=== PATIENT | male | born 2000 | race African-American/Black ===

== ENCOUNTER 2021-02-11 10:00 | Emergency (ER) | payer OTHER, SELFPAY ==
--- NOTE | ~2021-02-11 | XR_ITS ---
EXAMINATION: XR KNEE, RIGHT CLINICAL INFORMATION: Right knee pain giving out. COMPARISON: None TECHNIQUE: Four views of the right knee. FINDINGS: Bones and soft tissues are normal. No fracture or joint effusion. Alignment is anatomic. Joint spaces are well maintained. No abnormal soft tissue calcification. XR/XR knee RT 4V IMPRESSION: Unremarkable right knee exam
[2021-02-11 10:21] VITALS: BP 119/74; PULSE 85; RESP 14; TEMP 36.9; O2SAT 100; BMI 28.2
--- NOTE | 2021-02-11 11:39 | ED_ITS ---
HPI - General Adult General Chief complaint: Upper Respiratory Symptoms Stated complaint: sore throat Time Seen by Provider: 02/11/21 11:19 Source: patient Mode of arrival: ambulatory Limitations: no limitations History of Present Illness HPI narrative: Patient presents to ED for runny nose and sore throat since yes terday. Patient denies any coughing, chest pain, or shortness of breath. Patient denies any fever, chills, or body aches. Patient's secondary complaint is right knee pain. Patient states right knee pain has been going on for couple months. Patient states at times his right knee at times will just give out and causing him to almost fall. Patient has not seen a provider for this knee issue Related Data Previous Rx's Medication Instructions Recorded naproxen 500 mg PO BID PRN #20 tab 02/11/21 Allergies Allergy/AdvReac Type Severity Reaction Status Date / Time No Known Allergies Allergy Unverified 05/14/20 17:56 Review of Systems Review of Systems: Yes all other systems are reviewed and are negative Constitutional: Constitutional: Reports as per HPI and Reports no additional constitutional complaints Eyes: Eyes: Reports as per HPI and Reports no additional eye complaints ENT: Reports system reviewed and no additional complaints, except as documented, Reports as per HPI, Reports nasal congestion and Reports sore throat Cardiovascular: Cardiovascular: Reports as per HPI, Reports no additional cardiovascular complaints and Denies chest pain Respiratory: Respiratory: Reports as per HPI, Reports no additional respiratory complaints and Denies cough Gastrointestinal: Gastrointestinal: Reports as per HPI and Reports no additional gastrointestinal complaints Genitourinary: Genitourinary: Reports no additional male genitourinary complaints and Reports as per HPI Musculoskeletal: Musculoskeletal: Reports no additional musculoskeletal complaints and Reports as per HPI Neurologic: Reports system reviewed and no additional complaints, except as documented and Reports as per HPI Psychiatric: Psychiatric: Reports no additional psychiatric complaints and Reports as per HPI [facility] Social History Social History Advance Directives: No Advance Directives Information Provided: No Physical Exam Vital Signs: Vital Signs: Last Vital Signs Temp 98.5 F 02/11/21 10:21 Pulse 85 02/11/21 10:21 Resp 14 02/11/21 10:21 BP 119/74 02/11/21 10:21 Pulse Ox 100 02/11/21 10:21 Body Mass Index 28.2 Const: General: cooperative, healthy appearing, comfortable, no acute distr ess, well developed, alert and awake Orientation/consciousness: patient o riented x3 HENMT: Head: Yes normal to inspection, Yes No palpable skull fracture present, Yes normocephalic and Yes atraumatic Ears: hearing grossly normal bilaterally and external ears normal General nose exam: Normal external nose present and Nasal discharge present clear Throat: Yes posterior oropharynx normal, Yes t onsils normal and Yes uvula midline Eyes: General: appearance normal, both eyes and all related structures Neck: Neck: Yes normal visual inspection, Yes full ROM, Yes no lymphadenopathy, Yes no meningeal signs, Yes trachea midline, Yes supple and No tender Chest: Chest palpation & inspection: normal inspection of the chest and normal palpation of entire chest wall Resp: Effort & Inspection: normal respiratory effort and able to speak in complete sentences Auscultation: clear to auscultation bilaterally Cardio: Jugular venous distension: no JVD Heart sounds: S1 normal heart sound present and S2 normal heart sound present GI: Inspection: Yes normal to inspection and No abdominal wall ecchymosis Palpation (GI): Soft to palpation, not firm, nontender, no guarding and not rigid : General: No CVA tenderness and Yes no CVA tenderness Back/Spine/Pelvis: Back: no CVA tenderness, No CVA tenderness and No back tenderness Skin: General skin exam: no rashes or lesions noted and elasticity normal Neuro: General: patient oriented x3, gait normal, no meningeal signs and CN's II-XI intact bilaterally Cranial nerves: Yes CN's II-XII intact bilaterally Extrem: General: Yes normal to inspection and Yes full ROM Knee images: 1. Positive for bone tenderness. Negative for erythema, warmth, swelling, or stiffness. Patient able to flex and extend knee. Pulses intact. Negative for leg swelling or calf pain Psych: Appearance: grossly normal, well kempt and not disheveled Course Course Course Narrative: Patient will have COVID/strep test sent. Patient also have knee x-ray Reevaluation(s) Reevaluation #1: Patient's COVID and strep test came back negative. Patient's knee x-ray came back normal. Time: 12:22 Medical Decision Making MDM Narrative Medical decision making narrative: URI symptoms. Chronic knee pain Lab Data Labs: Lab Results 02/11/21 02/11/21 Range/Units 11:28 11:28 COVID-19 ([facility]) Negative (Negative) COVID-19 Clin Com See Note S. pyogenes GrpA STAR Negative (Negative) Discharge Plan Discharge Clinical Impression: Acute viral syndrome Patient Disposition: Home, Self-Care Instructions: Pharyngitis (ED), Viral Syndrome (ED), Knee Pain (ED) Additional Instructions: Your COVID and strep test came back negative. Right knee x-ray came back normal. Return to the ED immediately for any chest pain, shortness of breath, coughing up blood, calf pain, leg swelling, weakness, dizziness, intractable fever, drooling, change in voice, neck pain, knee swelling, knee redness, or any other concerning symptoms. Please follow-up with PCP Prescriptions: New naproxen 500 mg tablet 500 mg PO BID PRN (Reason: pain) Qty: 20 RF: 0 Stand Alone Forms: Work/School Release Interventions: ED Discharge Assessment Last Done: 02/11/21 12:28 Discharge Date/Time: 02/11/21 12:30 Print Language: Khmer
[2021-02-11 11:43] LABS: IDNOW Serial# 08D9AD1C; Strep A Nucleic Acid Negative (Negative)
[2021-02-11 12:01] LABS: COVID-19 Test Negative (Negative)
== END 2021-02-11 12:30 | disposition home or self-care (01) ==
PROVIDERS: Physician Assistant; Emergency Provider Emergency Medicine
DX: B34.9 Viral infection, unspecified (principal); M25.561 Pain in right knee; Z20.822 Contact with and (suspected) exposure to COVID-19
CPT/HCPCS: 36415; 73564; 87635; 87651; 99283

== ENCOUNTER 2021-04-15 19:13 | Emergency (ER) | payer SELFPAY ==
--- NOTE | 2021-05-23 01:38 | ED.GENADULT ---
HPI - General Adult General Stated complaint: work inj Related Data Previous Rx's Medication Instructions Recorded naproxen 500 mg tablet 500 mg PO BID PRN #20 tab 02/11/21 acetaminophen 300 mg-codeine 30 mg 1 tab PO Q8H PRN #10 tab 04/16/21 tablet cyclobenzaprine 10 mg tablet 10 mg PO Q8H #10 tab 04/16/21 lidocaine HCl 4 % topical cream 1 appl TOPICAL BID PRN #120 g 04/16/21 (Aspercreme (lidocaine HCl)) Allergies Allergy/AdvReac Type Severity Reaction Status Date / Time No Known Allergies Allergy Unverified 05/14/20 17:56 [facility] Social History Social History Advance Directives: Yes Advance Directives Information Provided: Yes Advance Directives on File: No Discharge Plan Discharge Clinical Impression: Patient left without being seen Patient Disposition: Left Without Being Seen Interventions: LWBS Worksheet Last Done: 04/15/21 22:42 Discharge Date/Time: 04/15/21 22:43
== END 2021-04-15 22:43 | disposition left against medical advice (07) ==
PROVIDERS: Emergency Provider Emergency Medicine Emergency Medical Services
DX: T14.90XA Injury, unspecified, initial encounter (principal); Y99.9 Unspecified external cause status

== ENCOUNTER 2021-04-16 12:59 | Emergency (ER) | payer SELFPAY ==
--- NOTE | ~2021-04-16 | CT_ITS ---
EXAM: CT scan of the head and cervical spine. INDICATION: Reason for Exam s/p work box fell on his head/neck since then headaches/neck TECHNIQUE: A noncontrast CT scan was performed from the skull base to the vertex. A noncontrast CT scan of the cervical spine was performed from the base of the skull through T1 at 2.5 mm and 1.25 mm collimation. Coronal and sagittal reformats were obtained at the acquisition workstation. This CT examination was performed using dose optimization techniques as appropriate, variously including the following: *Automated exposure control *Adjustment of mA and/or kV according to patient size (this includes techniques or standardized protocols for targeted exams where dose is matched to indication/reason for exam; i.e. extremities or head) *Use of iterative reconstruction technique DLP: 65 mGy-cm COMPARISON: 10/13/2019 FINDINGS: Head: There is no evidence of acute intracranial hemorrhage or territorial infarction. Campa-white matter differentiation is preserved. No abnormal mass effect or midline shift. No extra-axial fluid collections. No abnormal attenuation is demonstrated within the brain parenchyma. The ventricles and sulcal spaces are proportional without hydrocephalus. Proportional prominence of the ventricles and sulcal spaces. No acute osseous or soft tissue abnormalities. The mastoid air cells and visualized portions of the paranasal sinuses are well aerated. Cervical Spine: The atlantooccipital and atlantoaxial articulations remain well aligned. Straightening of the normal cervical lordosis. Otherwise, there is anatomic alignment of the vertebral bodies and posterior elements. No evidence of acute fracture or subluxation. The vertebral body heights and disc spaces are maintained. There is no prevertebral soft tissue swelling. The thyroid gland and remaining cervical soft tissues are normal in appearance. The lung apices demonstrate no abnormalities. CT/CT cervical spine wo con IMPRESSION: No acute intracranial pathology. No fracture subluxation cervical spine.
[2021-04-16 14:06] VITALS: BP 128/77; PULSE 78; RESP 18; TEMP 36.6; O2SAT 76; BMI 27.4
--- NOTE | 2021-04-16 14:57 | ED_ITS ---
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 He denies loss of consciousness or being on any blood thinners. He denies any changes in vision, fevers, chills, neck stiffness, paresthesias or any other symptoms complaints or concerns at this time. MD Complaint: head injury and other (Neck injury) Onset (ago): day(s) (Two days ago) Mechanism of Injury: work related injury and other (Heavy box fell onto the patient's head/neck) Place: work Loss of Consciousness: no Location of injury: occipital and other (And cervical spine) Severity: moderate Severity scale (1-10): 10 Quality: aching and throbbing Radiation: none Other Injuries: none Associated symptoms: neck pain Related Data Previous Rx's Medication Instructions Recorded naproxen 500 mg tablet 500 mg PO BID PRN #20 tab 02/11/21 acetaminophen 300 mg-codeine 30 mg 1 tab PO Q8H PRN #10 tab 04/16/21 tablet cyclobenzaprine 10 mg tablet 10 mg PO Q8H #10 tab 04/16/21 lidocaine HCl 4 % topical cream 1 appl TOPICAL BID PRN #120 g 04/16/21 (Aspercreme (lidocaine HCl)) Allergies Allergy/AdvReac Type Severity Reaction Status Date / Time No Known Allergies Allergy Unverified 05/14/20 17:56 Review of Systems Review of Systems: Constitutional : Positive head/neck trauma, No Weight loss, No Fever, No Chills, ENT/Mouth : No Hearing loss, No Ear Pain, No Nasal Congestion, No Sinus Pain, No Hoarseness, No sore throat, No Rhinorrhea, No Swallowing Difficulty Cardiovascular : No Chest Pain, No SOB Respiratory : No Cough, No Dyspnea Gastrointestinal : No Nausea, No Vomiting, No Diarrhea, No abdominal Pain, No Hematochezia, No Melena Genitourinary : No Dysuria, No Urinary Frequency, No Hematuria, No Urinary or Bowel Incontinence/retention Musculoskeletal : Positive Neck pain, No Back pain, No joint stiffness, No joint swelling Skin : No Skin Lesions, No rash or signs of infection Neuro : Positive head injury with intermittent headaches, No Tingling to b/l arms/legs, No Weakness, No radiation, No Numbness, no loss of bowel or bladder incontinence, no saddle anesthesia Denies history of IV drug usage. Yes all other systems are reviewed and are negative PMFSH Past Medical History Attestation statement: The following information was validated with the patient. Social History Social History Advance Directives: Yes Advance Directives Information Provided: Yes Advance Directives on File: No Physical Exam Vital Signs: Vital Signs: Last Vital Signs Temp 97.9 F 04/16/21 14:06 Pulse 67 04/16/21 15:20 Resp 16 04/16/21 15:20 BP 128/77 04/16/21 14:06 Pulse Ox 99 04/16/21 15:20 Body Mass Index 27.4 vital signs have been reviewed as normal and appeared to be correct. Blood pressure normal. Heart rate normal. Respiration rate normal. Temperature normal. Oxygen saturation normal. Appearance: Alert. Oriented X3. No acute distress. Head: Normal external exam. Normocephalic. Atraumatic. Able to rotate head bilaterally with complaints of pain. Eyes: PERRLA. EOMI. No nystagmus noted. Conjunctiva and sclera normal. Eyelids normal. Corneal reflex normal. ENT: EAC normal. TM's Normal. Hearing normal. Pharynx normal. Uvula midline. tongue midline. Moist mucous membranes. No trismus noted. No drooling noted. No muffled voice noted. No nystagmus noted. Neck: Normal inspection. Neck supple. Patient has limited range of motion when looking towards the ceiling and over both shoulders although is able to touch his chin to his chest. No adenopathy. Thyroid Normal. Trachea midline. No meningeal signs. No neck mass noted. Tender to palpation of bilateral paracervical musculature and mid cervical tenderness. No step-offs or deformities noted. Patient neuro intact bilaterally and distally on all 4 extremities. Reflexes intact bilaterally and distally in all 4 extremities. No rashes/lesion/induration/fluctuance or signs of infection noted. No edema noted. CVS: Normal heart rate and rhythm. Heart sound normal. No murmurs noted. Pulses normal throughout. Respiratory: No respiratory distress. Painless inspiration. Breath sounds normal. No wheezes/rales/rhonchi noted. Chest nontender. No accessory muscle usage noted or decreased air movement noted. Abdomen: Soft and nontender. Bowel sounds normal in all 4 quadrants. No distention noted. No organomegaly noted. No visible injury noted. Back: No CVA tenderness. Full range of motion noted. Skin: Skin warm and dry. Normal skin color. Normal skin turgor. No rashes/lesions/lacerations noted. Extremities: No lower extremity edema. Extremities exhibit normal range of motion. Extremities nontender. Able to shrug shoulders bilaterally and keep up against resistance. Neuro: Oriented X 3. No motor deficit. No sensory deficit. Reflexes normal. Moving all extremities. No focal motor deficits. Cranial nerves II-XI intact bilaterally. Normal cognition. Speech normal. Gait normal. Strength 5/5 throughout. Muscle tone normal throughout. 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 He denies loss of consciousness or being on any blood thinners. Plan: CT scan of brain/cervical spine provide 975 mg of Tylenol and Lidoderm patch and re-evaluate. Reevaluation(s) Reevaluation #1: CT scan of brain/cervical spine within normal limits no acute processes are noted. Therefore will DC home with symptomatic treatment along with instructions return if any new or worsening symptoms follow-up with primary care provider. Patient understands agrees to this plan. Time: 16:08 [facility] - Head Injury Medical Records Attestation: I reviewed the patient's medical records. Imaging Data CT scan of brain/cervical spine without contrast: Attestation: I personally reviewed and interpreted this imaging study as follows: Radiologist's impression: FINDINGS: Head: There is no evidence of acute intracranial hemorrhage or territorial infarction. Campa-white matter differentiation is preserved. No abnormal mass effect or midline shift. No extra-axial fluid collections. No abnormal attenuation is demonstrated within the brain parenchyma. The ventricles and sulcal spaces are proportional without hydrocephalus. ?Proportional prominence of the ventricles and sulcal spaces. No acute osseous or soft tissue abnormalities. The mastoid air cells and visualized portions of the paranasal sinuses are well aerated. Cervical Spine: The atlantooccipital and atlantoaxial articulations remain well aligned. Straightening of the normal cervical lordosis. Otherwise, there is anatomic alignment of the vertebral bodies and posterior elements. No evidence of acute fracture or subluxation. The vertebral body heights and disc spaces are maintained. There is no prevertebral soft tissue swelling. The thyroid gland and remaining cervical soft tissues are normal in appearance. The lung apices demonstrate no abnormalities. CT/CT head/brain wo con IMPRESSION: No acute intracranial pathology. No fracture subluxation cervical spine. Discharge Plan Discharge Clinical Impression: Strain of neck muscle, Head injury, acute, without loss of consciousness, Concussion, Work related injury Patient Disposition: Home, Self-Care Instructions: Cervical Strain (ED), Concussion (ED), Head Injury (ED), Return to Work Instructions (ED) Prescriptions: New cyclobenzaprine 10 mg tablet 10 mg PO Q8H Qty: 10 RF: 0 acetaminophen-codeine 300-30 mg tablet 1 tab PO Q8H PRN (Reason: pain) Qty: 10 RF: 0 lidocaine HCl [Aspercreme (lidocaine HCl)] 4 % cream 1 appl topical BID PRN (Reason: pain) Qty: 120 RF: 0 No Action naproxen 500 mg tablet 500 mg PO BID PRN (Reason: pain) Qty: 20 RF: 0 Referrals: [facility] [Provider Group] - 2 days (from your job ) Stand Alone Forms: Work/School Release Print Language: Greenlandic
[2021-04-16 15:20] VITALS: PULSE 67; RESP 16; O2SAT 99
[2021-04-16] MEDS: Lidocaine 4 % Patch ADH..PATCH 1 PATCH TRANSDERMA (15:50)
[2021-04-16] MEDS: Acetaminophen 325 MG TABLET 975 MG PO (15:50)
== END 2021-04-16 16:22 | disposition home or self-care (01) ==
PROVIDERS: Emergency Provider Internal Medicine
DX: S16.1XXA Strain of muscle, fascia and tendon at neck level, initial encounter (principal); S06.0X0A Concussion without loss of consciousness, initial encounter; W20.8XXA Other cause of strike by thrown, projected or falling object, initial encounter; Y93.89 Activity, other specified; Y92.512 Supermarket, store or market as the place of occurrence of the external cause; Y99.0 Civilian activity done for income or pay
CPT/HCPCS: 70450; 72125; 99284

== ENCOUNTER 2022-08-30 23:13 | Emergency (ER) | payer MEDICAID, SELFPAY ==
[2022-08-30 23:41] VITALS: BP 117/71; PULSE 81; RESP 18; TEMP 36.9; O2SAT 99; BMI 27.4
--- NOTE | 2022-08-31 00:44 | ED.MALEGU ---
HPI - Male Genitourinary General Chief complaint: Urogenital-Male Stated complaint: ?STD/?UTI Time Seen by Provider: 08/31/22 00:43 Source: patient Mode of arrival: ambulatory Limitations: no limitations History of Present Illness HPI Narrative: This is a 22-year-old male presenting to the emergency department with complaints of burning with urination and he feels like he has ants crawling in the tip of his penis. Patient tells me this started 4-5 days ago and has been unchanged since the start. Patient has no history of STDs or STIs. He tells me he does not think he has any however is agreeable to receive treatment for them today. Patient denies back pain, fevers, chills, nausea, vomiting, headache, vision changes, dizziness, chest pain, shortness of breath, testicular pain, penile dc. He does report that he gets intermittent diffuse abdominal pain from time to time however not present right now. Related Data Previous Rx's Medication Instructions Recorded naproxen 500 mg tablet 500 mg PO BID PRN pain #20 tabs 02/11/21 acetaminophen 300 mg-codeine 30 mg 1 tab PO Q8H PRN pain #10 tabs 04/16/21 tablet cyclobenzaprine 10 mg tablet 10 mg PO Q8H Muscle spasm #10 tabs 04/16/21 lidocaine HCl 4 % topical cream 1 appl topical BID PRN pain #120 04/16/21 (Aspercreme (lidocaine HCl)) grams doxycycline hyclate 100 mg capsule 100 mg PO BID 7 days #14 caps 08/31/22 metronidazole 500 mg tablet 500 mg PO BID 7 days #14 tabs 08/31/22 Allergies Allergy/AdvReac Type Severity Reaction Status Date / Time No Known Allergies Allergy Unverified 05/14/20 17:56 Review of Systems Review of Systems: Constitutional : No Weight loss, No Fever, No Chills, No Fatigue, No Malaise ENT/Mouth : No sore throat, No Rhinorrhea Eyes: No Eye Pain, No Swelling, No Redness Cardiovascular : No Chest Pain, No SOB, No Dyspnea on Exertion, No Orthopnea, No Edema, No Palpitations Respiratory : No Cough, No Sputum, No Wheezing Gastrointestinal : No Nausea, No Vomiting, No Diarrhea, No Constipation, No abdominal Pain, No Hematochezia, No Melena Genitourinary : + Dysuria, No Urinary Frequency, No Hematuria, Musculoskeletal : No joint pain, No Myalgias, No Joint Swelling Skin : No Skin Lesions, No rash Neuro : No Weakness, No Numbness, No Dizziness, No Headache Psych : No Anxiety/Panic, No Depression All other systems reviewed and are negative Yes all other systems are reviewed and are negative [facility] Past Medical History Attestation statement: The following information was validated with the patient. Source: old records reviewed and nursing notes reviewed Physical Exam Vital Signs: Vital Signs: Last Vital Signs Temp 98.4 F 08/30/22 23:41 Pulse 81 08/30/22 23:41 Resp 18 08/30/22 23:41 BP 117/71 08/30/22 23:41 Pulse Ox 99 08/30/22 23:41 O2 Del Method 08/30/22 23:41 BMI result Body Mass Index 27.4 vss Appearance: Alert.? Oriented X3.? No acute distress.? Head: Normocephalic, atraumatic, no step-offs or deformities Eyes: Pupils equal, round and reactive to light.? CVS: Normal heart rate and rhythm.? Pulses normal.? Respiratory: No respiratory distress.? Breath sounds normal.? Abdomen: Soft and nontender.? Skin: Skin warm and dry.? Normal skin color.? Normal skin turgor.? Extremities: No lower extremity edema.? No calf ttp. 5/5 strength to bilateral upper and lower extremities Sensitive exam: patient refused. Neuro: Oriented X 3.? No motor deficit.? No sensory deficit. CN 2-12 intact Course Reevaluation(s) Reevaluation #1: Patient was treated with ceftriaxone, doxycycline metronidazole. Advised to follow-up with PCP. Educated him on proper STD follow-up instructions. Patient verbalizes understanding Educated patient on diagnosis and treatment plan, answered all question, patient verbalizes understanding. At this time patient will be discharged home, advised to return with new or worsening symptoms. Educated on worrisome signs and symptoms and when to return. At this time I feel comfortable discharge home. Time: 00:50 Medical Decision Making Medical Decision Making [facility] Narrative: 0045 22-year-old male presents with dysuria and feeling of having ants on his penis. Physical exam benign. However patient did refuse a sense of exam. Concerns for STD versus UTI versus cystitis. Unlikely pyelo. No signs of acute abdomen, torsion Patient agrees to prophylactic treatment for gonorrhea, chlamydia and trichomonas. 500mg IM ceftriaxone has been given here and scripts for doxycycline 100 mg po BID X 7 days and metronidazole 500 mg po BID X 7 days have been given to the patient. Educated on safe sex practices, full pannel STD testing and speaking to? partners on possible STD. Differential Diagnosis Differential Diagnoses: The differential diagnosis associated with the presentation includes Concerns for STD versus UTI versus cystitis. Unlikely pyelo. No signs of acute abdomen. Core Measures AMI core measures followed: Yes Measure exclusions: not indicated Critical Care Time Critical Care Time Critical Care Time: No Discharge Plan Discharge Clinical Impression: Dysuria Patient Disposition: Home, Self-Care Instructions: Dysuria (ED) Additional Instructions: Take your medications as prescribed. If you were prescribed antibiotics today, it is important that you take your medication to their entirety, do not skip any doses, do not finish them early. Follow-up with your primary care provider this week. Return to the emergency department with new or worsening symptoms. Such as fevers, chills, chest pain, shortness of breath, nausea, vomiting, dizziness, headache, vision changes, lethargy In case of emergency call 911 Test were obtained today, you will be called if results are positive. You were treated here today with ceftriaxone, a medication that treats gonorrhea. I have sent to your pharmacy Metronidazole that covers trichomonas, and Doxycycline which covers for chlamydia. Please be reevaluated by a healthcare provider after completing your antibiotics. Do not stop them early, do not skip any doses. Until you are reevaluated by a health care provider please practice safe sex as disucussed, this doesnt mean you have an STD. Please also have a conversation with your sexual partners if you have high supicion for STDs.? I also advise you to obtain full panel STD testing to test for other STDs including HIV, Hepatitis B & C and syphilis with your PCP or a local clinic. Prescriptions: New doxycycline hyclate 100 mg capsule 100 mg PO BID 7 Days Qty: 14 0RF metronidazole 500 mg tablet 500 mg PO BID 7 Days Qty: 14 0RF No Action naproxen 500 mg tablet 500 mg PO BID PRN (Reason: pain) Qty: 20 0RF cyclobenzaprine 10 mg tablet 10 mg PO Q8H Qty: 10 0RF acetaminophen-codeine 300-30 mg tablet 1 tab PO Q8H PRN (Reason: pain) Qty: 10 0RF lidocaine HCl [Aspercreme (lidocaine HCl)] 4 % cream 1 appl topical BID PRN (Reason: pain) Qty: 120 0RF Referrals: Physician,None [Primary Care Provider] - 2 days
[2022-08-31 01:01] LABS: Appearance Urine Clear; Color Urine Yellow; Glucose Urine UA Negative (Negative); Leukocyte Esterase Urine Negative (Negative); Nitrite Urine Negative (Negative); PH 5.5 (5.0-9.0); Specific Gravity - Urine >= 1.030 (1.005-1.025); Urine Blood Negative (Negative); Urine Ketones Trace mg/dL (Negative); Urine Protein Negative (Neg-Trace)
[2022-08-31] MEDS: metroNIDAZOLE 500 MG TABLET PO (01:32)
[2022-08-31] MEDS: Doxycycline Monohydrate 100 MG CAPSULE PO (01:36)
[2022-08-31] MEDS: cefTRIAXone sodium 500 MG, Lidocaine HCl 1 % MPF 1 ML IM (01:56)
[2022-08-31 06:21] LABS: CT PCR DETECTED (Not Detect.); NG PCR NOT DETECTED (Not Detect.)
== END 2022-08-31 02:02 | disposition home or self-care (01) ==
LOC: HO.ED 08-31 01:09
PROVIDERS: Emergency Provider Internal Medicine
DX: R30.0 Dysuria (principal)
CPT/HCPCS: 81003; 87491; 87591; 96372; 99282; 99284; J0696

== ENCOUNTER 2022-12-06 05:00 | Emergency (ER) | payer MEDICAID, SELFPAY ==
[2022-12-06 05:21] VITALS: BP 134/71; PULSE 82; RESP 14; TEMP 36.5; O2SAT 98; BMI 26.6
[2022-12-06 05:25] VITALS: BP 134/71; PULSE 70; RESP 14; TEMP 36.5; O2SAT 96
--- NOTE | 2022-12-06 05:31 | PC.NURSE ---
Pt presents to ER with generalized body aches, starting at 0200. Pt reports pain was initially 7/10, pt took a tylenol and pain decreased to 5/10. Pt reports increased pain in the low back when he takes a deep breath. Pt is A&Ox4, GCS 15, with warm, dry skin. Pt denies SOB, chest pain, N/V/D, or confusion. Labs hae been ordered and pt is waiting to be seen by ED provider.
[2022-12-06 05:43] LABS: MANUAL DIFF FLAG NO
[2022-12-06 05:44] LABS: Basophils Absolute Auto 0.1 X10*3/uL (0.0-0.2); Basophils Percent Auto 0.7 % (0-2); Eosinophils Absolute Auto 0.1 X10*3/uL (0.0-0.4); Eosinophils Percent Auto 1.8 % (0-4); Hematocrit 43.9 % (42.0-52.0); Hemoglobin 15.3 g/dl (14.0-18.0); Imm Gran Abs Auto 0.01 X10*3/uL (0.00-0.03); Imm Gran Pct Auto 0.1 % (0.0-0.4); Lymphocytes Absolute Auto 2.1 X10*3/uL (1.2-4.9); Lymphocytes Percent Auto 28.5 % (20-40); Mean Corpuscular HGB Conc 34.9 g/dl (31.0-36.0); Mean Corpuscular Hemoglobin 29.7 pg (27.0-33.0); Mean Corpuscular Volume 85.1 fL (80.0-98.0); Monocytes Percent Auto 13.1 % (2-11); Neutrophils Absolute Auto 4.1 x10*3/uL (2.0-8.3); Neutrophils Percent Auto 55.8 % (45-73); Platelet Count 293 X10*3/uL (160-400); Red Blood Count 5.16 X10*6/uL (4.60-5.80); Red Cell Distribution Width 11.8 % (11.0-16.0); White Blood Count 7.3 X10*3/uL (4.8-10.8)
[2022-12-06 06:02] LABS: Alanine Aminotransferase 25 U/L (0-40); Albumin Level 4.5 g/dL (3.5-5.0); Alkaline Phosphatase 91 U/L (39-117); Anion Gap 14 (12-20); Aspartate Amino Transferase 20 U/L (5-37); Bilirubin Total 0.6 mg/dL (0.0-1.0); Blood Urea Nitrogen 13 mg/dL (9-16); Calcium 9.6 mg/dL (8.4-10.2); Carbon Dioxide 25 mmol/L (22-29); Chloride 104 mmol/L (96-108); Creatinine Clr Calc Pharmacy 104.4; Estimated Glomerular Filt Rate > 60; Glucose Random 88 mg/dL (60-115); Potassium 4.1 mmol/L (3.3-5.1); Sodium 139 mmol/L (135-145); Total Protein 7.3 g/dL (6.5-8.0)
[2022-12-06 06:21] LABS: Influenza A PCR NEGATIVE (Negative); Influenza B PCR NEGATIVE (Negative); Resp Syncy Virus RNA Qual PCR NEGATIVE (Negative); SARS COV2 PCR INHOUSE NEGATIVE (Negative)
[2022-12-06 07:07] VITALS: BP 119/73; PULSE 68; RESP 16; O2SAT 99
--- NOTE | 2022-12-06 07:07 | ED.GENADULT ---
HPI - General Adult General Chief complaint: General Medical Stated complaint: Body aches Time Seen by Provider: 12/06/22 07:07 Source: patient Mode of arrival: ambulatory Limitations: no limitations History of Present Illness HPI narrative: Low back and then bodyaches this morning, he was concerned that he had COVID Onset (ago): hour(s) Location: back Severity: mild Quality: aching Pain Consistency: constant Related Data Previous Rx's Medication Instructions Recorded naproxen 500 mg tablet 500 mg PO BID PRN pain #20 tabs 02/11/21 acetaminophen 300 mg-codeine 30 mg 1 tab PO Q8H PRN pain #10 tabs 04/16/21 tablet cyclobenzaprine 10 mg tablet 10 mg PO Q8H Muscle spasm #10 tabs 04/16/21 lidocaine HCl 4 % topical cream 1 appl topical BID PRN pain #120 04/16/21 (Aspercreme (lidocaine HCl)) grams doxycycline hyclate 100 mg capsule 100 mg PO BID 7 days #14 caps 08/31/22 metronidazole 500 mg tablet 500 mg PO BID 7 days #14 tabs 08/31/22 Allergies Allergy/AdvReac Type Severity Reaction Status Date / Time No Known Allergies Allergy Unverified 05/14/20 17:56 Review of Systems Review of Systems: Yes all other systems are reviewed and are negative Constitutional: Comments: myalgias PMFSH Social History Social History Alcohol intake: never Smoked in Last 30 Days: No Use of substances other than those prescribed or required for medical reasons: No Advance Directives: No Advance Directives Information Provided: Yes Physical Exam ED Vital Signs: Vital Signs - 24 hr 12/06/22 05:21 12/06/22 05:25 12/06/22 07:07 Temperature 97.7 F 97.7 F Pulse Rate 82 70 68 Respiratory Rate 14 14 16 Blood Pressure 134/71 134/71 119/73 Pulse Oximetry 98 96 99 Oxygen Delivery Method Room Air Room Air Room Air BMI result Body Mass Index 26.6 Const General: healthy appearing Nutritional Appearance: average body habitus Orientation/consciousness: oriented to person and patient oriented x3 Limitations: no limitations HENMT Head: Yes normal to inspection Ears: external ears normal General nose exam: Normal external nose present Mouth: Normal oral and palatal mucosa present and oropharynx normal Throat: Yes posterior oropharynx normal Eyes General: appearance normal, both eyes and all related structures Neck Neck: Yes normal visual inspection Chest Chest palpation & inspection: normal inspection of the chest Resp Auscultation: clear to auscultation bilaterally Cardio Jugular venous distension: no JVD Rate: regular rate Rhythm: regular rhythm Heart sounds: S1 normal heart sound present and S2 normal heart sound present GI Inspection: Yes normal to inspection Palpation (GI): Soft to palpation, nontender and No hepatosplenomegaly present Auscultation: normal bowel sounds General: Yes no CVA tenderness Back/Spine/Pelvis Back: no CVA tenderness Skin General skin exam: no rashes or lesions noted Neuro General: oriented to person and patient oriented x3 Cranial nerves: Yes CN's II-XII intact bilaterally Motor exam (neuro): 5/5 motor strength present throughout Extrem General: Yes normal to inspection Psych Appearance: grossly normal Course Reevaluation(s) Reevaluation #1: resting comfortably non toxic Time: 07:12 Medical Decision Making Differential Diagnosis Differential Diagnoses: The differential diagnosis associated with the presentation includes (COVID, RSV, Influenza, viral illness, myalgias) Lab Data MDM Lab Attestation statement: I reviewed the patient's lab results. 12/06/22 05:38 12/06/22 05:38 Labs: Lab Results 12/06/22 12/06/22 12/06/22 Range/Units 05:38 05:38 05:38 WBC 7.3 (4.8-10.8) X10*3/uL RBC 5.16 (4.60-5.80) X10*6/uL Hgb 15.3 (14.0-18.0) g/dl Hct 43.9 (42.0-52.0) % MCV 85.1 (80.0-98.0) fL MCH 29.7 (27.0-33.0) pg MCHC 34.9 (31.0-36.0) g/dl RDW 11.8 (11.0-16.0) % Plt Count 293 (160-400) X10*3/uL MPV 10.0 (9.4-12.4) fL Immature Gran % (Auto) 0.1 (0.0-0.4) % Neut % (Auto) 55.8 (45-73) % Lymph % (Auto) 28.5 (20-40) % [place] % (Auto) 13.1 H (2-11) % Eos % (Auto) 1.8 (0-4) % Baso % (Auto) 0.7 (0-2) % Lymph # (Auto) 2.1 (1.2-4.9) X10*3/uL [place] # (Auto) 1.0 (0.1-1.2) X10*3/uL Eos # (Auto) 0.1 (0.0-0.4) X10*3/uL Baso # (Auto) 0.1 (0.0-0.2) X10*3/uL Abs Immat Gran (auto) 0.01 (0.00-0.03) X10*3/uL Absolute Neuts (auto) 4.1 (2.0-8.3) x10*3/uL Absolute Nucleated RBC 0.000 (0.0-0.012) X10*3/uL Nucleated RBC % (auto) 0.0 (0.0-0.2) /100WBC Sodium 139 (135-145) mmol/L Potassium 4.1 (3.3-5.1) mmol/L Chloride 104 (96-108) mmol/L Carbon Dioxide 25 (22-29) mmol/L Anion Gap 14 (12-20) BUN 13 (9-16) mg/dL Creatinine 1.02 (0.5-1.4) mg/dL Estim Creat Clear Calc 104.4 Estimated GFR > 60 Random Glucose 88 (60-115) mg/dL Calcium 9.6 (8.4-10.2) mg/dL Total Bilirubin 0.6 (0.0-1.0) mg/dL AST 20 (5-37) U/L ALT 25 (0-40) U/L Alkaline Phosphatase 91 (39-117) U/L Total Protein 7.3 (6.5-8.0) g/dL Albumin 4.5 (3.5-5.0) g/dL Influenza Type A (PCR) NEGATIVE (Negative) Influenza Type B (PCR) NEGATIVE (Negative) RSV RNA Qual (PCR) NEGATIVE (Negative) SARS-CoV-2 RNA (RT-PCR) NEGATIVE (Negative) Tests considered The following testing was considered but not selected: I considered getting a UA but the patient is well appearing, no dysuria, no CVAT Discharge Plan Discharge Clinical Impression: Myalgia, Viral illness Patient Disposition: Home, Self-Care Instructions: Musculoskeletal Pain (ED), Viral Syndrome (ED) Prescriptions: No Action naproxen 500 mg tablet 500 mg PO BID PRN (Reason: pain) Qty: 20 0RF cyclobenzaprine 10 mg tablet 10 mg PO Q8H Qty: 10 0RF acetaminophen-codeine 300-30 mg tablet 1 tab PO Q8H PRN (Reason: pain) Qty: 10 0RF lidocaine HCl [Aspercreme (lidocaine HCl)] 4 % cream 1 appl topical BID PRN (Reason: pain) Qty: 120 0RF doxycycline hyclate 100 mg capsule 100 mg PO BID 7 Days Qty: 14 0RF metronidazole 500 mg tablet 500 mg PO BID 7 Days Qty: 14 0RF Referrals: Physician,Unknown J [Primary Care Provider] - 5 days
== END 2022-12-06 07:31 | disposition home or self-care (01) ==
PROVIDERS: Emergency Provider Emergency Medicine
DX: M79.10 Myalgia, unspecified site (principal); B34.9 Viral infection, unspecified; Z20.822 Contact with and (suspected) exposure to COVID-19; Z20.828 Contact with and (suspected) exposure to other viral communicable diseases; Z79.899 Other long term (current) drug therapy
CPT/HCPCS: 0241U; 80053; 85025; 99283; 99284

== ENCOUNTER 2022-12-20 15:18 | Emergency (ER) | payer MEDICAID, SELFPAY ==
--- NOTE | 2022-12-20 15:55 | ED_ITS ---
HPI - Skin/Abscess/Foreign Bdy General Chief complaint: General Medical Stated complaint: ingrown toenail right foot Time Seen by Provider: 12/20/22 15:52 Source: patient Mode of arrival: ambulatory Limitations: no limitations History of Present Illness HPI narrative: 22 yo male here with right ingrown toenail to right great toe. No weakness, numbness, tingling, difficulty with movement, fevers, chills. This is re- occurrence for patient Related Data Previous Rx's Medication Instructions Recorded naproxen 500 mg tablet 500 mg PO BID PRN pain #20 tabs 02/11/21 acetaminophen 300 mg-codeine 30 mg 1 tab PO Q8H PRN pain #10 tabs 04/16/21 tablet cyclobenzaprine 10 mg tablet 10 mg PO Q8H Muscle spasm #10 tabs 04/16/21 lidocaine HCl 4 % topical cream 1 appl topical BID PRN pain #120 04/16/21 (Aspercreme (lidocaine HCl)) grams doxycycline hyclate 100 mg capsule 100 mg PO BID 7 days #14 caps 08/31/22 metronidazole 500 mg tablet 500 mg PO BID 7 days #14 tabs 08/31/22 doxycycline monohydrate 100 mg 100 mg PO BID #14 caps 12/20/22 capsule tolnaftate 1 % topical spray 1 spray topical DAILY #133 grams 12/20/22 powder (Athlete's Foot (tolnaftate)) Allergies Allergy/AdvReac Type Severity Reaction Status Date / Time No Known Allergies Allergy Unverified 12/20/22 16:00 Review of Systems Review of Systems: Yes all other systems are reviewed and are negative Constitutional: Constitutional: Reports no additional constitutional complaints, Denies body ache(s), Denies chills, Denies fever(s), Denies headache(s) and Denies weakness Eyes: Eyes: Reports no additional eye complaints and Denies change in vision ENT: Reports system reviewed and no additional complaints, except as documented, Denies dizziness, Denies headache(s), Denies nasal congestion, Denies nasal discharge and Denies neck pain Cardiovascular: Cardiovascular: Reports no additional cardiovascular complaints, Denies chest pain, Denies leg edema and Denies dyspnea Respiratory: Respiratory: Reports no additional respiratory complaints, Denies cough and Denies dyspnea Gastrointestinal: Gastrointestinal: Reports no additional gastrointestinal complaints, Denies abdominal pain, Denies diarrhea, Denies nausea and Denies vomiting Genitourinary: Genitourinary: Denies urinary incontinence Musculoskeletal: Musculoskeletal: Reports no additional musculoskeletal complaints, Denies back pain, Denies arthralgias, Denies joint swelling, Denies neck pain, Denies numbness and Denies tingling Integumentary/Breasts: Skin/Breast: Reports system reviewed and no additional complaints, except as docu, Reports swelling, Reports erythema and Denies rash Neurologic: Reports system reviewed and no additional complaints, except as documented, Denies Abnormal speech present, Denies dizziness, Denies headache(s), Denies numbness, Denies tingling and Denies weakness PMFSH Past Medical History Attestation statement: The following information was validated with the patient. Source: old records reviewed and nursing notes reviewed Social History Social History Alcohol intake: never Advance Directives: No Advance Directives Information Provided: Yes Physical Exam Vital Signs: Vital Signs: Last Vital Signs Temp 97.9 F 12/20/22 15:58 Pulse 70 12/20/22 15:58 Resp 16 12/20/22 15:58 BP 141/75 H 12/20/22 15:58 Pulse Ox 100 12/20/22 15:58 O2 Del Method Room Air 12/20/22 15:58 BMI result Body Mass Index 27.4 Const: General: cooperative, healthy appearing, comfortable and no acute distress Orientation/consciousness: patient oriented x3 Limitations: no limitations HEENT: Head: Yes normal to inspection Ears: hearing grossly normal bilaterally General nose exam: Normal external nose present Face and sinus: Yes normal facial exam Mouth: Normal oral and palatal mucosa present Throat: Yes posterior oropharynx normal Eyes: General: appearance normal, both eyes and all related structures Pupils: Equal, round and reactive pupils present Neck: Neck: Yes normal visual inspection Chest: Chest palpation & inspection: normal inspection of the chest Resp: Effort & Inspection: normal respiratory effort Auscultation: clear to auscultation bilaterally Cardio: Rate: regular rate Rhythm: regular rhythm Peripheral pulses: Peripheral pulses 2+ throughout GI: Inspection: Yes normal to inspection Palpation (GI): Soft to palpation and nontender Auscultation: normal bowel sounds Back/Spine/Pelvis: Thoracic/Lumbar Spine: thoracic and lumbar spine normal to inspection Skin: General skin exam: no rashes or lesions noted Neuro: General: patient oriented x3, no focal motor deficits and normal sensation to monofilament Cranial nerves: Yes Equal, round and reactive pupils present Cognition (Neuro): normal cognition Speech: No Abnormal speech present Gait exam (Neuro): Normal gait present Motor exam (neuro): 5/5 motor strength present throughout Extrem: Other: On the lateral aspect of the great toe on the right side there is an ingrown nail General: Yes normal to inspection Medications Administered Discontinued Medications Generic Name Dose Route Start Last Admin Trade Name Freq PRN Reason Stop Dose Admin Lidocaine HCl 2 ml 12/20/22 15:54 12/20/22 16:15 Lidocaine Hcl 1 % Mpf 2 Ml Vial INFILTRATI 12/20/22 15:55 2 ml ONCE ONE Administration Lidocaine HCl 2 ml 12/20/22 15:54 12/20/22 16:15 Lidocaine Hcl 1 % Mpf 2 Ml Vial INFILTRATI 12/20/22 15:55 2 ml ONCE ONE Administration Lidocaine HCl 2 ml 12/20/22 16:24 12/20/22 16:30 Lidocaine Hcl 1 % Mpf 2 Ml Vial INFILTRATI 12/20/22 16:25 2 ml ONCE ONE Administration Lidocaine HCl 2 ml 12/20/22 16:24 12/20/22 16:30 Lidocaine Hcl 1 % Mpf 2 Ml Vial INFILTRATI 12/20/22 16:25 2 ml ONCE ONE Administration Medical Decision Making Medical Decision Making MDM Narrative: 22 yo male here with right great toenail which is ingrown Will need digital block, partial nail removal Once completed patient will be sent home with oral antibiotics and recommendations for warm compresses. Of note, patient also has some tinea pedis on the bottom aspect of his left foot and so I will prescribe him a topical powder. Differential Diagnosis Differential Diagnoses: The differential diagnosis associated with the presentation includes ingrown toenail Procedures Procedure Narrative Procedure Narrative: The patient's right great toe was cleansed with Betadine. He had a digital block with good effect. He had a a partial nail removal on lateral aspect. Patient tolerated well with no difficulty. The site was cleansed and a dressing was applied. Nerve Block Nerve Block 1: Time out performed: Yes Local Anesthetic: lidocaine 1% Amount of anesthesia used (mL): 3 Side: right Nerve Blocks: digital Procedure Successful: Yes Patient Tolerated Procedure: well Complications: none Discharge Plan Discharge Clinical Impression: Ingrowing toenail of right foot, Tinea pedis Patient Disposition: Home, Self-Care Instructions: Athlete's Foot (ED), Ingrown Nail (ED), Partial Nail Avulsion for Ingrown Nail (DC), Warm Compress or Soak (ED) Additional Instructions: warm soaks 3 times daily ask for a referral to see a android ui developer Prescriptions: New doxycycline monohydrate 100 mg capsule 100 mg PO BID Qty: 14 0RF tolnaftate [Athlete's Foot (tolnaftate)] 1 % aerosol powder 1 spray topical DAILY Qty: 133 0RF No Action naproxen 500 mg tablet 500 mg PO BID PRN (Reason: pain) Qty: 20 0RF cyclobenzaprine 10 mg tablet 10 mg PO Q8H Qty: 10 0RF acetaminophen-codeine 300-30 mg tablet 1 tab PO Q8H PRN (Reason: pain) Qty: 10 0RF lidocaine HCl [Aspercreme (lidocaine HCl)] 4 % cream 1 appl topical BID PRN (Reason: pain) Qty: 120 0RF doxycycline hyclate 100 mg capsule 100 mg PO BID 7 Days Qty: 14 0RF metronidazole 500 mg tablet 500 mg PO BID 7 Days Qty: 14 0RF Referrals: Physician,Unknown J [Primary Care Provider] - Stand Alone Forms: Work/School Release
[2022-12-20 15:58] VITALS: BP 141/75; PULSE 70; RESP 16; TEMP 36.6; O2SAT 100; BMI 27.4
[2022-12-20] MEDS: Lidocaine HCl 1 % MPF 2 ML VIAL INFILTRATI ×4 (16:15→16:30)
== END 2022-12-20 16:53 | disposition home or self-care (01) ==
PROVIDERS: Emergency Provider Emergency Medicine
DX: L60.0 Ingrowing nail (principal); Z79.899 Other long term (current) drug therapy
CPT/HCPCS: 11730; 99282; 99284

== ENCOUNTER 2023-01-18 05:19 | Emergency (ER) | payer MEDICAID, SELFPAY ==
[2023-01-18 05:33] VITALS: BP 123/68; PULSE 74; RESP 18; TEMP 36.5; O2SAT 97; BMI 27.4
[2023-01-18 05:53] VITALS: BP 123/68; PULSE 74; RESP 18; TEMP 36.5; O2SAT 97
--- NOTE | 2023-01-18 05:57 | PC.NURSE ---
pt c/o lower back pain d/t heavy lifting and pulling back gait steady, slow aox4 no apparent distress
--- NOTE | 2023-01-18 06:42 | ED.BACK ---
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 He states when he went to stand up with a box he had immediate pain in the left lower back. States it is coming and going, worse with any movement. Describes it as stabbing pain, does not radiate. He denies any urinary or bowel issues. No fever or chills. No history of IVDA. No weakness or numbness in his legs. MD elicited complaint: back pain and back injury Onset (ago): hour(s) Timing: intermittent Severity: severe Similar Symptoms Previously: No Quality: stabbing Location: left lower back Radiation: none Exacerbating factors: movement Relieving factors: immobilization Context: while lifting, turning/twisting and bending Associated symptoms: denies other symptoms Treatments prior to arrival: NSAIDS Work related injury: Yes Related Data Previous Rx's Medication Instructions Recorded naproxen 500 mg tablet 500 mg PO BID PRN pain #20 tabs 02/11/21 acetaminophen 300 mg-codeine 30 mg 1 tab PO Q8H PRN pain #10 tabs 04/16/21 tablet cyclobenzaprine 10 mg tablet 10 mg PO Q8H Muscle spasm #10 tabs 04/16/21 lidocaine HCl 4 % topical cream 1 appl topical BID PRN pain #120 04/16/21 (Aspercreme (lidocaine HCl)) grams doxycycline hyclate 100 mg capsule 100 mg PO BID 7 days #14 caps 08/31/22 metronidazole 500 mg tablet 500 mg PO BID 7 days #14 tabs 08/31/22 doxycycline monohydrate 100 mg 100 mg PO BID #14 caps 12/20/22 capsule tolnaftate 1 % topical spray 1 spray topical DAILY #133 grams 12/20/22 powder (Athlete's Foot (tolnaftate)) cyclobenzaprine 10 mg tablet 10 mg PO TID PRN muscle spasm #10 01/18/23 tabs ibuprofen 600 mg tablet 600 mg PO Q8H PRN pain #14 tabs 01/18/23 lidocaine 5 % topical patch 1 patch topical DAILY #15 ea 01/18/23 Allergies Allergy/AdvReac Type Severity Reaction Status Date / Time No Known Allergies Allergy Verified 01/18/23 05:37 Review of Systems Review of Systems: Yes all other systems are reviewed and are negative [facility] Social History Social History Alcohol intake: never Smoked in Last 30 Days: No Use of substances other than those prescribed or required for medical reasons: No Advance Directives: No Advance Directives Information Provided: Yes Physical Exam Vital Signs: Vital Signs: Last Vital Signs Temp 97.7 F 01/18/23 05:53 Pulse 74 01/18/23 05:53 Resp 18 01/18/23 05:53 BP 123/68 01/18/23 05:53 Pulse Ox 97 01/18/23 05:53 O2 Del Method Room Air 01/18/23 05:53 BMI result Body Mass Index 27.4 Appearance: Alert. Oriented X3. No acute distress. HEENT: normal inspection CVS: Normal heart rate and rhythm. Pulses normal. Respiratory: No respiratory distress. Lungs are clear throughout Skin: Skin warm and dry. Normal skin color. Normal skin turgor. No rashes. Back: Normal inspection, normal range of motion of the spine, tenderness to the left lower lumbar soft tissue area with palpable spasm. No SI joint tenderness. Extremities: Normal inspection x4, no joint swelling. Neuro: Oriented X 3. No motor deficit. No sensory deficit. Steady gait. Medical Decision Making Medical Decision Making MDM Narrative: 22-year-old male presenting to the ER for evaluation of left low back pain after heavy lifting a few hours ago while at work. He has no red flag symptoms of low back pain. Exam and clinical presentation are most consistent with muscle strain and spasm. Will treat with muscle relaxers and NSAIDs. He is requesting light duty at work, where he was not to do heavy lifting. He will follow up with [facility]. He is stable for discharge home. He has a primary care doctor he can follow-up with. Differential Diagnosis Differential Diagnoses: The differential diagnosis associated with the presentation includes Muscle strain/spams, Inflammatory disorders, malignancy, trauma, osteoporosis, nerve root compression, radiculopathy, plexopathy, degenerative disc disease, disc herniation, spinal stenosis, sacroiliac joint dysfunction, facet joint injury, and less likely infection?like abscess or diskitis External Record Review External record reviewed: Prior outpatient labs Prescription Management I considered prescription management with: Pain Medication Critical Care Time Critical Care Time Critical Care Time: No Discharge Plan Discharge Clinical Impression: Strain of lumbar region Patient Disposition: Home, Self-Care Instructions: Low Back Strain (ED), Lower Back Exercises (ED) Additional Instructions: Your pain is most likely due to muscle strain and spasm. No bending, lifting or twisting. Use ice several times per day for 20 minutes at a time for the next 48 hours and then change to heat. Take medications as prescribed to help with pain and discomfort. Follow up with your Primary Care Doctor this week. If your pain worsens, if you develop new numbness, tingling, weakness, loss of function or incontinence call 911 or come back to the ER right away for evaluation. Prescriptions: New cyclobenzaprine 10 mg tablet 10 mg PO TID PRN (Reason: muscle spasm) Qty: 10 0RF ibuprofen 600 mg tablet 600 mg PO Q8H PRN (Reason: pain) Qty: 14 0RF lidocaine 5 % adhesive patch,medicated 1 patch topical DAILY Qty: 15 0RF Rx Instructions: leave on most painful area for up to 12 hrs No Action naproxen 500 mg tablet 500 mg PO BID PRN (Reason: pain) Qty: 20 0RF cyclobenzaprine 10 mg tablet 10 mg PO Q8H Qty: 10 0RF acetaminophen-codeine 300-30 mg tablet 1 tab PO Q8H PRN (Reason: pain) Qty: 10 0RF lidocaine HCl [Aspercreme (lidocaine HCl)] 4 % cream 1 appl topical BID PRN (Reason: pain) Qty: 120 0RF doxycycline hyclate 100 mg capsule 100 mg PO BID 7 Days Qty: 14 0RF metronidazole 500 mg tablet 500 mg PO BID 7 Days Qty: 14 0RF doxycycline monohydrate 100 mg capsule 100 mg PO BID Qty: 14 0RF tolnaftate [Athlete's Foot (tolnaftate)] 1 % aerosol powder 1 spray topical DAILY Qty: 133 0RF Referrals: [facility] [Provider Group] (back injury at work) Stand Alone Forms: Work/School Release Interventions: ED Discharge Assessment Last Done: 01/18/23 06:47 Discharge Date/Time: 01/18/23 06:48
== END 2023-01-18 06:48 | disposition home or self-care (01) ==
PROVIDERS: Emergency Provider Emergency Medicine Emergency Medical Services
DX: S39.012A Strain of muscle, fascia and tendon of lower back, initial encounter (principal); X50.0XXA Overexertion from strenuous movement or load, initial encounter; Y93.9 Activity, unspecified; Y92.59 Other trade areas as the place of occurrence of the external cause; Y99.0 Civilian activity done for income or pay
CPT/HCPCS: 99283; 99284

== ENCOUNTER 2023-02-09 10:36 | Emergency (ER) | payer OTHER, MEDICAID, SELFPAY ==
[2023-02-09 10:54] VITALS: BP 114/68; PULSE 75; RESP 18; TEMP 36.4; O2SAT 99; BMI 27.4
--- NOTE | 2023-02-09 12:20 | ED_ITS ---
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 Patient states bleeding was pretty copious at the time unknown tetanus status. Wound was wrapped with bandage at this time bleeding is controlled. Pain increased with range of motion of the right thumb. No other complaints at this time. Related Data Previous Rx's Medication Instructions Recorded naproxen 500 mg tablet 500 mg PO BID PRN pain #20 tabs 02/11/21 acetaminophen 300 mg-codeine 30 mg 1 tab PO Q8H PRN pain #10 tabs 04/16/21 tablet cyclobenzaprine 10 mg tablet 10 mg PO Q8H Muscle spasm #10 tabs 04/16/21 lidocaine HCl 4 % topical cream 1 appl topical BID PRN pain #120 04/16/21 (Aspercreme (lidocaine HCl)) grams doxycycline hyclate 100 mg capsule 100 mg PO BID 7 days #14 caps 08/31/22 metronidazole 500 mg tablet 500 mg PO BID 7 days #14 tabs 08/31/22 doxycycline monohydrate 100 mg 100 mg PO BID #14 caps 12/20/22 capsule tolnaftate 1 % topical spray 1 spray topical DAILY #133 grams 12/20/22 powder (Athlete's Foot (tolnaftate)) cyclobenzaprine 10 mg tablet 10 mg PO TID PRN muscle spasm #10 01/18/23 tabs ibuprofen 600 mg tablet 600 mg PO Q8H PRN pain #14 tabs 01/18/23 lidocaine 5 % topical patch 1 patch topical DAILY #15 ea 01/18/23 Allergies Allergy/AdvReac Type Severity Reaction Status Date / Time No Known Allergies Allergy Verified 01/18/23 05:37 Review of Systems Review of Systems: General: No fever, no chills Muscle skeletal: Right thumb pain GI: no nausea vomiting, no diarrhea Skin: Right thumb laceration PMFSH Past Medical History Attestation statement: The following information was validated with the patient. Social History Social History Alcohol intake: never Advance Directives: No Physical Exam ED Vital Signs: Vital Signs - 24 hr 02/09/23 10:54 Temperature 97.6 F Pulse Rate 75 Respiratory Rate 18 Blood Pressure 114/68 Pulse Oximetry 99 Oxygen Delivery Method Room Air BMI result Body Mass Index 27.4 General appearance: Awake, alert, cooperative, in no acute distress Skin: Right thumb dorsum 1 cm laceration noted at the level of the MCP joint Eyes: PERRL, EOMI, no icterus ENT: Oropharynx normal, uvula midline Neck: Trachea midline Pulmonary: no accessory muscle use Cardiovascular: Regular rate and rhythm, no murmurs and rubs Extremities: Full flexion extension of the right thumb positive capillary refill proximal pulses intact Neuro: Alert oriented x3, no focal deficit Psych: Normal affect Course Course Course Narrative: Right thumb laceration Abrasion Contusion 22-year-old male with an obvious laceration to the right thumb dorsum at the level about the MCP. Patient has full flexion extension will plan to repair at this time. 0.5 mL Tdap IM will be given. Procedure note laceration repair right thumb 1 cm laceration at the level of the MCP joint dorsum Clean with Betadine saline Anesthetized with 1% lidocaine Wound irrigated and cleaned with Betadine saline Closed with 4-0 Prolene x3 tolerated well Medications Administered Discontinued Medications Generic Name Dose Route Start Last Admin Trade Name Freq PRN Reason Stop Dose Admin Diphtheria/Tetanus/Acell Pertussis 0.5 ml 02/09/23 12:24 02/09/23 12:32 Diphth,Pertus(Acell),Tet Adult 0.5 Ml Syringe IM 02/09/23 12:25 0.5 ml .ONCE ONE Administration Lidocaine HCl 2 ml 02/09/23 12:24 02/09/23 12:33 Lidocaine Hcl 1 % 20 Ml Vial INFILTRATI 02/09/23 12:25 2 ml ONCE ONE Administration Lidocaine HCl 2 ml 02/09/23 12:24 02/09/23 12:32 Lidocaine Hcl 1 % Mpf 2 Ml Vial INFILTRATI 02/09/23 12:25 2 ml ONCE ONE Administration Discharge Plan Discharge Clinical Impression: Laceration Patient Disposition: Home, Self-Care Instructions: Laceration (ED) Additional Instructions: Suture removal 7-10 days Keep wound clean and dry Return if increased redness fever or pain Prescriptions: No Action naproxen 500 mg tablet 500 mg PO BID PRN (Reason: pain) Qty: 20 0RF cyclobenzaprine 10 mg tablet 10 mg PO Q8H Qty: 10 0RF acetaminophen-codeine 300-30 mg tablet 1 tab PO Q8H PRN (Reason: pain) Qty: 10 0RF lidocaine HCl [Aspercreme (lidocaine HCl)] 4 % cream 1 appl topical BID PRN (Reason: pain) Qty: 120 0RF doxycycline hyclate 100 mg capsule 100 mg PO BID 7 Days Qty: 14 0RF metronidazole 500 mg tablet 500 mg PO BID 7 Days Qty: 14 0RF doxycycline monohydrate 100 mg capsule 100 mg PO BID Qty: 14 0RF tolnaftate [Athlete's Foot (tolnaftate)] 1 % aerosol powder 1 spray topical DAILY Qty: 133 0RF cyclobenzaprine 10 mg tablet 10 mg PO TID PRN (Reason: muscle spasm) Qty: 10 0RF ibuprofen 600 mg tablet 600 mg PO Q8H PRN (Reason: pain) Qty: 14 0RF lidocaine 5 % adhesive patch,medicated 1 patch topical DAILY Qty: 15 0RF Rx Instructions: leave on most painful area for up to 12 hrs Stand Alone Forms: Work/School Release
[2023-02-09] MEDS: Diphth,Pertus(ACell),Tet Adult 0.5 ML SYRINGE IM (12:32)
[2023-02-09] MEDS: Lidocaine HCl 1 % MPF 2 ML VIAL INFILTRATI (12:32)
[2023-02-09] MEDS: Lidocaine HCl 1 % 20 ML VIAL INFILTRATI (12:33)
== END 2023-02-09 12:47 | disposition home or self-care (01) ==
PROVIDERS: Emergency Provider Emergency Medicine
DX: S61.011A Laceration without foreign body of right thumb without damage to nail, initial encounter (principal); S60.511A Abrasion of right hand, initial encounter; W26.0XXA Contact with knife, initial encounter; Y93.9 Activity, unspecified; Y92.9 Unspecified place or not applicable; Y99.9 Unspecified external cause status; Z79.899 Other long term (current) drug therapy; Z23 Encounter for immunization
CPT/HCPCS: 12001; 90471; 90715; 99282; 99284

== ENCOUNTER 2023-05-02 15:29 | Outpatient (REF) | payer OTHER, MEDICAID, SELFPAY ==
[2023-05-02 18:50] LABS: CT PCR NOT DETECTED (Not Detect.); NG PCR NOT DETECTED (Not Detect.)
== END 2023-05-02 15:30 | disposition home or self-care (01) ==
LOC: HO.HHCL 15:29
PROVIDERS: Visit Provider Internal Medicine Geriatric Medicine
DX: F41.8 Other specified anxiety disorders (principal); Z86.19 Personal history of other infectious and parasitic diseases; Z20.2 Contact with and (suspected) exposure to infections with a predominantly sexual mode of transmission
CPT/HCPCS: 0353U

== ENCOUNTER 2024-01-08 17:51 | Emergency (ER) | payer MEDICAID, SELFPAY ==
--- NOTE | ~2024-01-08 | US_ITS ---
EXAMINATION: US SCROTUM CLINICAL INFORMATION: Left testicular pain. COMPARISON: None available. TECHNIQUE: A sonogram of the scrotum was performed assessing huston-scale appearance and color Doppler flow. Spectral Doppler analysis of the arterial and venous flow were performed in the testes bilaterally. FINDINGS: RIGHT: Right testicle measures 4.5 x 2.2 x 3.1 cm, volume 16.2 mL. Right-sided testicular microlithiasis. No focal testicular parenchymal lesions are visualized. Spectral Doppler analysis of the arterial and venous flow is normal in the right testis. Right epididymal head is normal in size. No right hydrocele or varicocele is seen. Right epididymal Doppler flow is normal. LEFT: Left testicle measures 4.5 x 2.2 x 2.7 cm, volume 13.8 mL. Left-sided testicular microlithiasis. No focal testicular parenchymal lesions are visualized. Spectral Doppler analysis of the arterial and venous flow is slightly increased in the left testis. Left epididymal head is normal in size. No left hydrocele or varicocele is seen. Left epididymal Doppler flow is normal. US/US scrotum doppler IMPRESSION: 1. Bilateral testicular vascular flow identified. 2. Slightly increased vascular flow of the left testicular parenchyma may reflect underlying infectious/inflammatory etiology. Correlation with symptomatology. 3. Bilateral testicular microlithiasis.
--- NOTE | ~2024-01-08 | US_ITS ---
EXAMINATION: US SCROTUM CLINICAL INFORMATION: Left testicular pain. COMPARISON: None available. TECHNIQUE: A sonogram of the scrotum was performed assessing huston-scale appearance and color Doppler flow. Spectral Doppler analysis of the arterial and venous flow were performed in the testes bilaterally. FINDINGS: RIGHT: Right testicle measures 4.5 x 2.2 x 3.1 cm, volume 16.2 mL. Right-sided testicular microlithiasis. No focal testicular parenchymal lesions are visualized. Spectral Doppler analysis of the arterial and venous flow is normal in the right testis. Right epididymal head is normal in size. No right hydrocele or varicocele is seen. Right epididymal Doppler flow is normal. LEFT: Left testicle measures 4.5 x 2.2 x 2.7 cm, volume 13.8 mL. Left-sided testicular microlithiasis. No focal testicular parenchymal lesions are visualized. Spectral Doppler analysis of the arterial and venous flow is slightly increased in the left testis. Left epididymal head is normal in size. No left hydrocele or varicocele is seen. Left epididymal Doppler flow is normal. US/US scrotum IMPRESSION: 1. Bilateral testicular vascular flow identified. 2. Slightly increased vascular flow of the left testicular parenchyma may reflect underlying infectious/inflammatory etiology. Correlation with symptomatology. 3. Bilateral testicular microlithiasis.
[2024-01-08 18:22] VITALS: BP 137/82; PULSE 90; RESP 20; TEMP 36.6; O2SAT 100; BMI 30.8
--- NOTE | 2024-01-08 18:27 | ED.MALEGU ---
HPI - Male Genitourinary General Chief complaint: Urogenital-Male Stated complaint: STD Testing Time Seen by Provider: 01/08/24 18:24 Source: patient Mode of arrival: ambulatory Limitations: no limitations History of Present Illness HPI Narrative: 23 yo male having unprotected sex here with pain after ejaculation no lesions no rash no testicular swelling wants testing and treatment MD Complaint: possible STD exposure Onset (ago): day(s) (few) Duration: intermittent Location: penis Radiation: penis Severity: mild Quality: burning Relieving factors: none Exacerbating factors: none Context: other Associated symptoms: Reports denies other symptoms Related Data Previous Rx's ?Medication ?Instructions ?Recorded naproxen 500 mg tablet 500 mg PO BID PRN pain #20 tabs 02/11/21 acetaminophen 300 mg-codeine 30 mg 1 tab PO Q8H PRN pain #10 tabs 04/16/21 tablet cyclobenzaprine 10 mg tablet 10 mg PO Q8H Muscle spasm #10 tabs 04/16/21 lidocaine HCl 4 % topical cream 1 appl topical BID PRN pain #120 04/16/21 (Aspercreme (lidocaine HCl)) grams doxycycline hyclate 100 mg capsule 100 mg PO BID 7 days #14 caps 08/31/22 metronidazole 500 mg tablet 500 mg PO BID 7 days #14 tabs 08/31/22 doxycycline monohydrate 100 mg 100 mg PO BID #14 caps 12/20/22 capsule tolnaftate 1 % topical spray 1 spray topical DAILY #133 grams 12/20/22 powder (Athlete's Foot (tolnaftate)) cyclobenzaprine 10 mg tablet 10 mg PO TID PRN muscle spasm #10 01/18/23 tabs ibuprofen 600 mg tablet 600 mg PO Q8H PRN pain #14 tabs 01/18/23 lidocaine 5 % topical patch 1 patch topical DAILY #15 ea 01/18/23 doxycycline hyclate 100 mg capsule 100 mg PO BID 7 days #13 caps 01/08/24 Allergies Allergy/AdvReac Type Severity Reaction Status Date / Time No Known Allergies Allergy Verified 01/08/24 18:24 Review of Systems Review of Systems: Constitutional : No Fever, No Chills, No Fatigue ENT/Mouth : No sore throat, No Rhinorrhea Eyes: No Eye Pain, No Swelling, No Redness Cardiovascular : No Chest Pain, No SOB, No Dyspnea on Exertion Respiratory : No Cough, No Sputum Gastrointestinal : No Nausea, No Vomiting, No Diarrhea, No abdominal Pain Genitourinary : No Dysuria, No Urinary Frequency, No Hematuria, Musculoskeletal : No joint pain, No Myalgias, No Joint Swelling Skin : No Skin Lesions, No rash Neuro : No Weakness, No Numbness, No Dizziness, no Headache Psych : No Anxiety/Panic, No Depression All other systems reviewed and are negative [facility] Past Medical History Attestation statement: The following information was validated with the patient. Source: old records reviewed Medical History No pertinent past medical history Social History Social History (Updated 01/08/24 @ 21:30 by Albertina Shaw DO) Alcohol intake: never Patient Tobacco Use Status: Never used Tobacco Physical Exam Vital Signs: Vital Signs: Last Vital Signs Temp 98 F 01/08/24 18:22 Pulse 90 01/08/24 18:22 Resp 20 01/08/24 18:22 BP 137/82 01/08/24 18:22 Pulse Ox 100 01/08/24 18:22 O2 Del Method Room Air 01/08/24 18:22 BMI result Body Mass Index 30.8 Appearance: Alert. Oriented X3. No acute distress. Eyes: Pupils equal, round and reactive to light. ENT: Pharynx normal. Neck: Normal inspection. Neck supple. CVS: Normal heart rate and rhythm. Pulses normal. Respiratory: No respiratory distress. Breath sounds normal. Abdomen: Soft and nontender. Skin: Skin warm and dry. Normal skin color. Normal skin turgor. Extremities: No lower extremity edema. No calf ttp Neuro: Oriented X 3. No motor deficit. No sensory deficit. Course Course Course Narrative: This is a Rapid Medical Examination (RME) performed by Eliana Becker PA-C in triage. Full HPI, ROS, assessment and treatment plan per primary provider in the Main ED. 23-year-old male presents to the ER for evaluation of pain w/ ejaculation x2 weeks along w/ intermittent left testicular pain. Plan: Ct/NG, UA, scrotal U/S Medical Decision Making Medical Decision Making MDM Narrative: 23 yo male with concern for STI exposure feels his urine is different and is worried noted a burn with ejaculation at this time wants STI panel - ceftriaxone and doxy ordered. [facility] Differential Diagnosis Differential Diagnoses: The differential diagnosis associated with the presentation includes STI exposure Lab Data MDM Lab Attestation statement: I reviewed the patient's lab results. Labs: Lab Results 01/08/24 Range/Units 19:26 Urine Color Yellow Urine Appearance Clear Urine pH 6.5 (5.0-9.0) Ur Specific [place] 1.015 (1.005-1.025) Urine Protein Negative (Neg-Trace) mg/dL Urine Glucose (UA) Negative (Negative) mg/dL Urine Ketones Negative (Negative) mg/dL Urine Blood Negative (Negative) Urine Nitrite Negative (Negative) Ur Leukocyte Esterase Negative (Negative) Independent Interpretation I performed an independent interpretation of an: Ultrasound (no torsion) Radiology Impression Discussion of test interpretation with radiology: I have reviewed the radiologist's reading. Prescription Management I considered prescription management with: Antibiotic Discharge Plan Discharge Clinical Impression: Possible exposure to STI Patient Disposition: Home, Self-Care Instructions: Sexually Transmitted Diseases (ED) Additional Instructions: return for worsening symptoms, pain, swelling, rash to complete care you should get syphillis and HIV [facility] - call to schedule appointment On doxycycline, do not take pills immediately before going to bed and swallow pills with plenty of water. Avoid direct sunlight, iron, antacids, and Pepto Bismol. Call your provider if you develop new ringing in your ears, new problems hearing, dizziness, difficulty swallowing, rash, abdominal discomfort, nausea, or diarrhea.? Prescriptions: New doxycycline hyclate 100 mg capsule 100 mg PO BID 7 Days Qty: 13 0RF No Action naproxen 500 mg tablet 500 mg PO BID PRN (Reason: pain) Qty: 20 0RF cyclobenzaprine 10 mg tablet 10 mg PO Q8H Qty: 10 0RF acetaminophen-codeine 300-30 mg tablet 1 tab PO Q8H PRN (Reason: pain) Qty: 10 0RF lidocaine HCl [Aspercreme (lidocaine HCl)] 4 % cream 1 appl topical BID PRN (Reason: pain) Qty: 120 0RF doxycycline hyclate 100 mg capsule 100 mg PO BID 7 Days Qty: 14 0RF metronidazole 500 mg tablet 500 mg PO BID 7 Days Qty: 14 0RF doxycycline monohydrate 100 mg capsule 100 mg PO BID Qty: 14 0RF tolnaftate [Athlete's Foot (tolnaftate)] 1 % aerosol powder 1 spray topical DAILY Qty: 133 0RF cyclobenzaprine 10 mg tablet 10 mg PO TID PRN (Reason: muscle spasm) Qty: 10 0RF ibuprofen 600 mg tablet 600 mg PO Q8H PRN (Reason: pain) Qty: 14 0RF lidocaine 5 % adhesive patch,medicated 1 patch topical DAILY Qty: 15 0RF Rx Instructions: leave on most painful area for up to 12 hrs Print Language: Hebrew
[2024-01-08 19:35] LABS: Appearance Urine Clear; Color Urine Yellow; Glucose Urine UA Negative (Negative); Leukocyte Esterase Urine Negative (Negative); Nitrite Urine Negative (Negative); PH 6.5 (5.0-9.0); Specific Gravity - Urine 1.015 (1.005-1.025); Urine Blood Negative (Negative); Urine Ketones Negative (Negative); Urine Protein Negative (Neg-Trace)
[2024-01-08] MEDS: cefTRIAXone sodium 500 MG, Lidocaine HCl 1 % MPF 1 ML IM (21:40)
[2024-01-08] MEDS: Doxycycline Monohydrate 100 MG CAPSULE PO (21:40)
[2024-01-08 21:48] VITALS: BP 137/82; PULSE 90; RESP 20; TEMP 36.6; O2SAT 100
[2024-01-09 02:20] LABS: CT PCR NOT DETECTED (Not Detect.); NG PCR NOT DETECTED (Not Detect.)
== END 2024-01-08 21:49 | disposition home or self-care (01) ==
PROVIDERS: Physician Assistant; Emergency Provider Emergency Medicine
DX: N50.812 Left testicular pain (principal); R10.2 Pelvic and perineal pain; Z20.2 Contact with and (suspected) exposure to infections with a predominantly sexual mode of transmission
CPT/HCPCS: 0353U; 76870; 81003; 93975; 96372; 99282; 99284; J0696

== ENCOUNTER 2024-06-26 08:54 | Outpatient (AMB) | payer MEDICAID, SELFPAY ==
--- NOTE | 2024-06-26 08:55 | A.OFFVIS_ITS ---
Intake Visit Reasons: Subcutaneous nodule of upper extremity Intake Note: Patient referred by Dr. Beckford for nodule on Lt arm. Present for yrs. Patient c/o: bothersome, pain when pressing on it. Tube Backer Required: No Accompanied by: Self / Same As Patient Allergies No Known Allergies Allergy (Verified 06/26/24 09:08) HPI Comments Details: Patient presents for evaluation of lipomas involving his left forearm x3 and 1 involving his left upper quadrant of the abdominal wall. He has had this several years time. They are increasing in size, become more symptomatic. He would like to have them removed. He has no such lesions elsewhere. Chart was reviewed and patient evaluated [facility] Medical History No pertinent past medical history Social History Alcohol intake: never Patient Tobacco Use Status: Never used Tobacco Physical Exam Const Other: Well-developed no man no acute distress. Multiple tattoos involving the upper extremities and chest. GI Other: Patient has a 2 x 2 cm involving left upper quadrant abdominal wall Extrem Other: Patient was 3 lipomas involving the volar aspect of his left forearm each measuring approximately 2 x 2 cm Assessment & Plan Assessment & Plan (1) Multiple lipomas: Code(s): D17.9 - Benign lipomatous neoplasm, unspecified Category: Surgical Plan Patient like to eventually had these excised but can not do so today because of other obligations. He will contact the office when it was can venous him to do so. All questions answered. Coding Level of Care Code New Pt Level 3 (63981) Diagnoses Multiple lipomas D17.9
== END 2024-06-26 09:11 | disposition home or self-care (01) ==
LOC: HO.HGS 08:54
PROVIDERS: PCP Internal Medicine Geriatric Medicine; Referring Provider Internal Medicine Geriatric Medicine; Visit Provider Surgery
DX: D17.9 Benign lipomatous neoplasm, unspecified (principal)
CPT/HCPCS: 99203

== ENCOUNTER → 2024-06-26 08:54 | Outpatient (BNVA) | payer MEDICAID, SELFPAY | PROVIDERS: PCP Internal Medicine Geriatric Medicine; Referring Provider Internal Medicine Geriatric Medicine; Visit Provider Surgery | DX: D17.22 Benign lipomatous neoplasm of skin and subcutaneous tissue of left arm (principal); D17.1 Benign lipomatous neoplasm of skin and subcutaneous tissue of trunk | CPT/HCPCS: 99202 ==

== ENCOUNTER 2024-08-15 14:45 | Emergency (ER) | payer MEDICAID, SELFPAY ==
--- NOTE | ~2024-08-15 | XR_ITS ---
EXAMINATION: XR CHEST CLINICAL INFORMATION: cough COMPARISON: None available. TECHNIQUE: 2 views of the chest were obtained. FINDINGS: No significant abnormality is noted involving the heart, lungs, mediastinum, bony thorax or soft tissues. XR/XR chest 2V IMPRESSION: Unremarkable examination. Electronically signed by: Norberto Paiz MD 08/15/2024 06:06 PM [facility] [place]
[2024-08-15 15:12] VITALS: BP 137/81; PULSE 134; RESP 20; TEMP 38.1; O2SAT 100; BMI 26.6
--- NOTE | 2024-08-15 15:13 | ED_ITS ---
HPI - Nausea/Vomiting/Diarrhea General Chief complaint: Abdominal Pain Stated complaint: Vomiting, cough Time Seen by Provider: 08/15/24 15:48 Source: patient, RN notes reviewed and old records reviewed Mode of arrival: ambulatory History of Present Illness ED Provider: Kena Calles PA-C HPI Narrative: 24-year-old male with no significant past medical history presenting to the ED complaining of subjective fever, myalgias, nausea, vomiting, diarrhea, and epigastric abdominal pain x 3 days. Also reports headache and cough. Denies taking any antipyretic today. Denies sick contacts, travel, suspicious food intake, dysuria/hematuria, CP/SOB, melena/brbpr or hematemesis Related Data Previous Rx's ?Medication ?Instructions ?Recorded naproxen 500 mg tablet 500 mg PO BID PRN pain #20 tabs 02/11/21 acetaminophen 300 mg-codeine 30 mg 1 tab PO Q8H PRN pain #10 tabs 04/16/21 tablet cyclobenzaprine 10 mg tablet 10 mg PO Q8H Muscle spasm #10 tabs 04/16/21 lidocaine HCl 4 % topical cream 1 appl topical BID PRN pain #120 04/16/21 (Aspercreme (lidocaine HCl)) grams doxycycline hyclate 100 mg capsule 100 mg PO BID 7 days #14 caps 08/31/22 metronidazole 500 mg tablet 500 mg PO BID 7 days #14 tabs 08/31/22 doxycycline monohydrate 100 mg 100 mg PO BID #14 caps 12/20/22 capsule tolnaftate 1 % topical spray 1 spray topical DAILY #133 grams 12/20/22 powder (Athlete's Foot (tolnaftate)) cyclobenzaprine 10 mg tablet 10 mg PO TID PRN muscle spasm #10 01/18/23 tabs ibuprofen 600 mg tablet 600 mg PO Q8H PRN pain #14 tabs 01/18/23 lidocaine 5 % topical patch 1 patch topical DAILY #15 ea 01/18/23 doxycycline hyclate 100 mg capsule 100 mg PO BID 7 days #13 caps 01/08/24 Allergies Allergy/AdvReac Type Severity Reaction Status Date / Time No Known Allergies Allergy Verified 08/15/24 15:15 Review of Systems 2 Review of Systems: Yes all other systems are reviewed and are negative Constitutional: Constitutional: Reports as per HPI [facility] Past Medical History Attestation statement: The following information was validated with the patient. Source: old records reviewed Medical History No pertinent past medical history Social History Social History Alcohol intake: never Patient Tobacco Use Status: Never used Tobacco Advance Directives: No Advance Directives Information Provided: No Do you have a plan to hurt others: No Plan Physical Exam 2 Vital Signs: Vital Signs: Last Vital Signs Temp 98.4 F 08/15/24 18:10 Pulse 95 08/15/24 18:10 Resp 20 08/15/24 18:10 BP 123/68 08/15/24 18:10 Pulse Ox 97 08/15/24 18:10 O2 Del Method Room Air 08/15/24 18:10 BMI result Body Mass Index 26.6 Const: General: cooperative, healthy appearing and no acute distress O rientation/consciousness: patient oriented x3 Limitations: no limitations HEENT: Head: Yes normal to inspection and Yes atraumatic Ears: hearing grossly normal bilaterally General nose exam: Normal external nose present Face and sinus: Yes normal facial exam Eyes: General: appearance normal, both eyes and all related structures EOM: EOMs intact bilaterally Neck: Neck: Yes normal visual inspection and Yes no meningeal signs Resp: Effort & Inspection: normal respiratory effort and no respiratory distress Auscultation: clear to auscultation bilaterally, no crackles and no wheezes Cardio: Rate: regular rate and tachycardic Heart sounds: S1 normal heart sound present and S2 normal heart sound present GI: Inspection: Yes normal to inspection Palpation (GI): Soft to palpation, nontender, no guarding and not rigid : General: Yes no CVA tenderness Back/Spine/Pelvis: Back: no CVA tenderness Skin: Rashes: no rashes Wounds: no wounds Neuro: General: patient oriented x3, tone normal and no meningeal signs C ranial nerves: Yes CN's II-XII intact bilaterally Gait exam (Neuro): Normal gait present Extrem: General: Yes normal to inspection and Yes no pedal edema Course Course Course Narrative: This is a Rapid Medical Examination (RME) performed by Eliana Becker PA-C in triage. Full HPI, ROS, assessment and treatment plan per primary provider in the Main ED. 24 y/o male presents to the ER for evaluation of 3 days of N/V/D and epigastric pains. vomiting 4x per day and having multiple episodes of diarrhea per day. subjective fevers at home. also having headache, body aches, eye pain and coughing fits. tachycardic in triage 130s. dry cough noted. temp 100.5 Plan: labs, viral swab -1630--no leukocytosis, 17% bands. Labs otherwise reassuring. Lactic acid negative - UA with RBCs/trace blood, not infected -influenza a positive >> suspect bandemia from influenza/viral etiology as no other sign of infection/bacterial source XR chest 2V IMPRESSION: Unremarkable examination. -Patient is tolerating p.o. in the ED. Vital signs have improved. Feels safe for discharge at this time. Out of the window for Tamiflu Results discussed with patient including worrisome signs and symptoms and strict return precautions, and when to return to the emergency department. They verbalized understanding and feel safe for discharge at this time. Medications Administered Discontinued Medications Generic Name Dose Route Start Last Admin Trade Name Freq PRN Reason Stop Dose Admin Sodium Chloride 1,000 mls @ 999 mls/hr 08/15/24 16:45 08/15/24 16:49 Ns IV 08/15/24 17:45 999 mls/hr .Q1H1M NORMA Administration Ketorolac Tromethamine 15 mg 08/15/24 16:11 08/15/24 16:36 Ketorolac Tromethamine 15 Mg/Ml Vial IVPUSH 08/15/24 16:12 15 mg ONCE ONE Administration Ondansetron HCl 4 mg 08/15/24 16:11 08/15/24 16:36 Ondansetron Hcl 4 Mg/2 Ml Vial IVPUSH 08/15/24 16:12 4 mg ONCE ONE Administration Medical Decision Making Medical Decision Making MDM Narrative: 24-year-old male with no significant past medical history presenting to the ED complaining of subjective fever, myalgias, nausea, vomiting, diarrhea, and epigastric abdominal pain x 3 days. On exam low-grade temp 100.5 degrees, tachycardic likely from fever, nontoxic appearing, abdomen soft/nontender, lungs CTA. Concern for gastroenteritis vs viral syndrome vs food poisoning. Rule out pneumonia vs bronchitis. Lower suspicion for ACS/PE, pancreatitis/cholecystitis/lithiasis, appendicitis or diverticulitis without tenderness on exam Low suspicion for severe sepsis as likely viral etiology Plan: Labs, UA, viral testing, IVF, antiemetic, antipyretic, re-evaluate. Please refer to course for remaining clinical decision making, interpretation of labs/imaging results, and discussions with consultants and/or family members. Differential Diagnosis Differential Diagnoses: The differential diagnosis associated with the presentation includes As above Admission/Observation Consideration of admission/observation: Escalation of care including admission/observation considered Lab Data MDM Lab Attestation statement: I reviewed the patient's lab results. 08/15/24 15:46 08/15/24 15:46 Labs: Lab Results 08/15/24 08/15/24 08/15/24 Range/Units 15:46 15:48 16:29 WBC 10.2 (4.8-10.8) X10*3/uL RBC 5.22 (4.60-5.80) X10*6/uL Hgb 15.5 (14.0-18.0) g/dl Hct 44.8 (42.0-52.0) % MCV 85.8 (80.0-98.0) fL MCH 29.7 (27.0-33.0) pg MCHC 34.6 (31.0-36.0) g/dl RDW 11.9 (11.0-16.0) % Plt Count 223 (160-400) X10*3/uL MPV 10.1 (9.4-12.4) fL Immature Gran % (Auto) Cancelled Neut % (Auto) Cancelled Lymph % (Auto) Cancelled Pope % (Auto) Cancelled Eos % (Auto) Cancelled Baso % (Auto) Cancelled Lymph # (Auto) Cancelled Pope # (Auto) Cancelled Eos # (Auto) Cancelled Baso # (Auto) Cancelled Abs Immat Gran (auto) Cancelled Absolute Neuts (auto) Cancelled Absolute Nucleated RBC 0.000 (0.0-0.012) X10*3/uL Nucleated RBC % (auto) 0.0 (0.0-0.2) /100WBC Neutrophils % (Manual) 56 (45-73) % Band Neutrophils % 17 H (3-5) % Lymphocytes % (Manual) 10 L (20-40) % Monocytes % (Manual) 14 H (2-11) % Metamyelocytes % 2 % Myelocytes % 1 % Abs Neuts (Manual) 7.4 (2.0-8.3) X10*3/uL Lymphocytes # (Manual) 1.0 L (1.2-4.9) X10*3/uL Monocytes # (Manual) 1.4 H (0.1-1.2) X10*3/uL Metamyelocytes # 0.2 X10*3/uL Myelocytes # 0.1 X10*/uL Platelet Estimate NORMAL (NORMAL) Plt Morphology Comment NORMAL RBC Morphology NORMAL Smear Tech's Comments MANUAL DIFF Sodium 138 (135-145) mmol/L Potassium 4.5 (3.3-5.1) mmol/L Chloride 101 (96-108) mmol/L Carbon Dioxide 26 (22-29) mmol/L Anion Gap 14 (12-20) BUN 10 (9-16) mg/dL Creatinine 1.11 (0.5-1.4) mg/dL Estim Creat Clear Calc 91.0 Estimated GFR > 60 Random Glucose 99 (60-115) mg/dL Lactic Acid 0.9 (0.5-2.0) mmol/L Calcium 9.8 (8.4-10.2) mg/dL Magnesium 1.8 (1.6-2.6) mg/dL Total Bilirubin 0.5 (0.0-1.0) mg/dL Direct Bilirubin 0.2 (0.0-0.5) mg/dL AST 27 (5-37) U/L ALT 29 (0-40) U/L Alkaline Phosphatase 72 (39-117) U/L Total Protein 8.0 (6.5-8.0) g/dL Albumin 4.5 (3.5-5.0) g/dL Lipase 16 (8-78) U/L Urine Color Yellow Urine Appearance Cloudy Urine pH 7.0 (5.0-9.0) Ur Specific [place] 1.025 (1.005-1.025) Urine Protein 100 (2+) H (Neg-Trace) mg/dL Urine Glucose (UA) Negative (Negative) mg/dL Urine Ketones 80 (Negative) mg/dL Urine Blood Trace H (Negative) Urine Nitrite Negative (Negative) Ur Leukocyte Esterase Negative (Negative) Urine RBC 6-10 H (0-2) /HPF Urine WBC 0-5 (0-5) /HPF Ur Squamous Epith Cells 0-2 (0-2) /HPF Urine Bacteria None Seen (None Seen) Hyaline Casts 0-2 (0-2) /LPF Influenza Type A (PCR) POSITIVE A (Negative) Influenza Type B (PCR) NEGATIVE (Negative) RSV RNA Qual (PCR) NEGATIVE (Negative) SARS-CoV-2 RNA (RT-PCR) NEGATIVE (Negative) Independent Interpretation I performed an independent interpretation of an: EKG and Plain X-Ray Radiology Impression Discussion of test interpretation with radiology: I have reviewed the radiologist's reading. External Record Review External record reviewed: Inpatient record, Office record, Outpatient record, Prior outpatient labs, Prior outpatient radiology, Primary care record and Outside ED record Tests considered The following testing was considered but not selected: As above Prescription Management I considered prescription management with: Pain Medication and Antibiotic Chronic Conditions Patient?s care impacted by: Other Social Determinants Patient?s care significantly limited by Social Determinants of Health including: Other Social Determinant of Health Discharge Plan Discharge Clinical Impression: Influenza A Patient Disposition: Still a Patient Prescriptions: No Action naproxen 500 mg tablet 500 mg PO BID PRN (Reason: pain) Qty: 20 0RF cyclobenzaprine 10 mg tablet 10 mg PO Q8H Qty: 10 0RF acetaminophen-codeine 300-30 mg tablet 1 tab PO Q8H PRN (Reason: pain) Qty: 10 0RF lidocaine HCl [Aspercreme (lidocaine HCl)] 4 % cream 1 appl topical BID PRN (Reason: pain) Qty: 120 0RF doxycycline hyclate 100 mg capsule 100 mg PO BID 7 Days Qty: 14 0RF metronidazole 500 mg tablet 500 mg PO BID 7 Days Qty: 14 0RF doxycycline monohydrate 100 mg capsule 100 mg PO BID Qty: 14 0RF tolnaftate [Athlete's Foot (tolnaftate)] 1 % aerosol powder 1 spray topical DAILY Qty: 133 0RF doxycycline hyclate 100 mg capsule 100 mg PO BID 7 Days Qty: 13 0RF cyclobenzaprine 10 mg tablet 10 mg PO TID PRN (Reason: muscle spasm) Qty: 10 0RF ibuprofen 600 mg tablet 600 mg PO Q8H PRN (Reason: pain) Qty: 14 0RF lidocaine 5 % adhesive patch,medicated 1 patch topical DAILY Qty: 15 0RF Rx Instructions: leave on most painful area for up to 12 hrs Print Language: American
[2024-08-15 15:58] LABS: Hematocrit 44.8 % (42.0-52.0); Hemoglobin 15.5 g/dl (14.0-18.0); Mean Corpuscular HGB Conc 34.6 g/dl (31.0-36.0); Mean Corpuscular Hemoglobin 29.7 pg (27.0-33.0); Mean Corpuscular Volume 85.8 fL (80.0-98.0); Mean Platelet Volume 10.1 fL (9.4-12.4); Platelet Count 223 X10*3/uL (160-400); Red Blood Count 5.22 X10*6/uL (4.60-5.80); Red Cell Distribution Width 11.9 % (11.0-16.0); White Blood Count 10.2 X10*3/uL (4.8-10.8)
[2024-08-15 16:00] LABS: Appearance Urine Cloudy; Color Urine Yellow; Glucose Urine UA Negative (Negative); Leukocyte Esterase Urine Negative (Negative); Nitrite Urine Negative (Negative); Specific Gravity - Urine 1.025 (1.005-1.025); UMIC TRIGGER UACC YES; Urine Blood Trace (Negative); Urine Ketones 80 mg/dL (Negative); Urine Protein 100 (2+) mg/dL (Neg-Trace)
[2024-08-15 16:03] LABS: Bacteria Urine None Seen (None Seen); Hyaline Casts Urine 0-2 /LPF (0-2); Squamous Epithelial Cell Urine 0-2 /HPF (0-2); WBC Urine 0-5 /HPF (0-5)
[2024-08-15 16:21] LABS: SLIDE REVIEW MANUAL DIFF
[2024-08-15 16:25] LABS: Albumin Level 4.5 g/dL (3.5-5.0); Aspartate Amino Transferase 27 U/L (5-37); Bilirubin Direct 0.2 mg/dL (0.0-0.5); Bilirubin Total 0.5 mg/dL (0.0-1.0); Blood Urea Nitrogen 10 mg/dL (9-16); Calcium 9.8 mg/dL (8.4-10.2); Carbon Dioxide 26 mmol/L (22-29); Chloride 101 mmol/L (96-108); Estimated Glomerular Filt Rate > 60; Glucose Random 99 mg/dL (60-115); Lipase 16 U/L (8-78); Magnesium 1.8 mg/dL (1.6-2.6); Potassium 4.5 mmol/L (3.3-5.1); Sodium 138 mmol/L (135-145)
--- NOTE | 2024-08-15 16:29 | ECG_ITS ---
Test Reason : TACHYCARDIA Blood Pressure : / mmHG Vent. Rate : 107 BPM Atrial Rate : 107 BPM P-R Int : 130 ms QRS Dur : 080 ms QT Int : 300 ms P-R-T Axes : 023 072 015 degrees QTc Int : 400 ms Sinus tachycardia Otherwise normal ECG When compared with ECG of 13-OCT-2019 20:51, Vent. rate has increased BY 45 BPM Referred By: Kena Calles Electronically Signed By:JOSEFINA ROCHA
[2024-08-15 16:33] LABS: Neutrophils Percent Manual 56 % (45-73)
[2024-08-15 16:35] LABS: Band Neutrophils Percent 17 % (3-5); Lymphocytes Percent Manual 10 % (20-40); Metamyelocytes Absolute 0.2 X10*3/uL; Metamyelocytes Percent 2 %; Monocytes Absolute Manual 1.4 X10*3/uL (0.1-1.2); Monocytes Percent Manual 14 % (2-11); Myelocytes Absolute 0.1 X10*/uL; Myelocytes Percent 1 %; Neutrophils Absolute Manual 7.4 X10*3/uL (2.0-8.3); Platelet Estimate NORMAL (NORMAL); Platelet Morphology Comment NORMAL; RBC Morphology NORMAL
[2024-08-15 16:36] LABS: Influenza A PCR POSITIVE (Negative); Influenza B PCR NEGATIVE (Negative); Resp Syncy Virus RNA Qual PCR NEGATIVE (Negative); SARS COV2 PCR INHOUSE NEGATIVE (Negative)
[2024-08-15] MEDS: ondansetron HCL 4 MG/2 ML VIAL IVPUSH (16:36)
[2024-08-15] MEDS: Ketorolac Tromethamine 15 MG/ML VIAL IVPUSH (16:36)
[2024-08-15 16:38] LABS: Alanine Aminotransferase 29 U/L (0-40); Alkaline Phosphatase 72 U/L (39-117); Anion Gap 14 (12-20)
[2024-08-15] MEDS: 0.9 % Sodium Chloride 1,000 ML 999 ML IV (16:49)
[2024-08-15 16:52] LABS: Lactic Acid 0.9 mmol/L (0.5-2.0)
[2024-08-15 17:35] VITALS: BP 127/71; PULSE 101; RESP 16; TEMP 37.8; O2SAT 97
[2024-08-15 18:10] VITALS: BP 123/68; PULSE 95; RESP 20; TEMP 36.9; O2SAT 97
[2024-08-15] MEDS: Acetaminophen 325 MG TABLET 650 MG PO (18:34)
--- NOTE | 2024-08-15 18:34 | PC.NURSE ---
patient has not had any episode of nausea /vomiting after zofran admin. patient given crackers and water fir PO trial, patient passed. medicated per oct for headache 3/ pain
== END 2024-08-15 18:43 | disposition home or self-care (01) ==
PROVIDERS: Physician Assistant; Emergency Provider Emergency Medicine
DX: J10.1 Influenza due to other identified influenza virus with other respiratory manifestations (principal); R50.9 Fever, unspecified; Z03.818 Encounter for observation for suspected exposure to other biological agents ruled out; R05.9 Cough, unspecified
CPT/HCPCS: 0241U; 36415; 71046; 80048; 80076; 81001; 81003; 83605; 83690; 83735; 85007; 85025; 85027; 87040; 93005; 96361; 96374; 96375; 99284; 99285; J1885; J2405

== ENCOUNTER → 2024-08-15 16:29 | Outpatient (BNV) | payer MEDICAID, SELFPAY | PROVIDERS: Emergency Provider Emergency Medicine; Visit Provider Internal Medicine | DX: R00.0 Tachycardia, unspecified (principal) | CPT/HCPCS: 93010 ==

== ENCOUNTER 2025-02-24 10:47 | Outpatient (REF) | payer MEDICAID, SELFPAY ==
[2025-02-24 13:10] LABS: MANUAL DIFF FLAG NO
[2025-02-24 13:24] LABS: Basophils Percent Auto 0.7 % (0-2); Eosinophils Absolute Auto 0.1 X10*3/uL (0.0-0.4); Eosinophils Percent Auto 1.4 % (0-4); Hematocrit 45.6 % (42.0-52.0); Hemoglobin 15.7 g/dl (14.0-18.0); Imm Gran Abs Auto 0.02 X10*3/uL (0.00-0.03); Imm Gran Pct Auto 0.4 % (0.0-0.4); Lymphocytes Absolute Auto 1.5 X10*3/uL (1.2-4.9); Lymphocytes Percent Auto 26.3 % (20-40); Mean Corpuscular HGB Conc 34.4 g/dl (31.0-36.0); Mean Corpuscular Hemoglobin 29.6 pg (27.0-33.0); Mean Platelet Volume 10.3 fL (9.4-12.4); Monocytes Absolute Auto 0.6 X10*3/uL (0.1-1.2); Monocytes Percent Auto 10.8 % (2-11); Neutrophils Absolute Auto 3.4 x10*3/uL (2.0-8.3); Neutrophils Percent Auto 60.4 % (45-73); Platelet Count 304 X10*3/uL (160-400); Red Cell Distribution Width 11.9 % (11.0-16.0); White Blood Count 5.6 X10*3/uL (4.8-10.8)
[2025-02-24 13:53] LABS: Alanine Aminotransferase 43 U/L (0-40); Albumin Level 4.7 g/dL (3.5-5.0); Alkaline Phosphatase 75 U/L (39-117); Anion Gap 9 (12-20); Aspartate Amino Transferase 29 U/L (5-37); Bilirubin Total 0.6 mg/dL (0.0-1.0); Blood Urea Nitrogen 14 mg/dL (9-16); C Reactive Protein 0.18 mg/dL (< or = 0.50); Calcium 9.5 mg/dL (8.4-10.2); Carbon Dioxide 27 mmol/L (22-29); Chloride 106 mmol/L (96-108); Cholesterol 217 mg/dL (<200); Estimated Glomerular Filt Rate > 60; Glucose Random 88 mg/dL (60-115); HDL Cholesterol 48 mg/dL (>40); LDL Cholesterol Calculated 146 mg/dL (<100); Lactate Dehydrogenase 226 U/L (118-273); Potassium 4.4 mmol/L (3.3-5.1); Sodium 138 mmol/L (135-145); Total Protein 7.6 g/dL (6.5-8.0); Triglycerides 118 mg/dL (<150)
[2025-02-24 14:16] LABS: Syphilis Screen Nonreactive (Nonreactive)
[2025-02-24 14:18] LABS: HIV AB/AG Nonreactive (Nonreactive); HIV Num 1 0.06 S/CO (0.00-0.99)
== END 2025-02-24 10:48 | disposition home or self-care (01) ==
LOC: HO.HHCL 10:47
PROVIDERS: Internal Medicine; PCP Internal Medicine Geriatric Medicine; Visit Provider Internal Medicine Geriatric Medicine
DX: Z00.00 Encounter for general adult medical examination without abnormal findings (principal); Z11.4 Encounter for screening for human immunodeficiency virus [HIV]; R22.32 Localized swelling, mass and lump, left upper limb
CPT/HCPCS: 36415; 80053; 80061; 83615; 85025; 86140; 86780; 87389